=== PATIENT | male | born 1970 | race Caucasian/White ===

== ENCOUNTER 2018-10-18 17:15 | Emergency (ER) | payer OTHER ==
[~2018-10-18] VITALS: Ht 167.6 cm; Wt 104.3 kg
[2018-10-18 17:23] VITALS: BP 128/74; Ht 167.6 cm; Wt 104.3 kg
== END 2018-10-18 18:34 | disposition home or self-care (01) ==
LOC: ED 17:15
DX: H60.02 Abscess of left external ear (principal); R03.0 Elevated blood-pressure reading, without diagnosis of hypertension; E11.9 Type 2 diabetes mellitus without complications